=== PATIENT | female | born 1970 | race Caucasian/White ===

== ENCOUNTER 2016-08-25 00:30 | Observation (INO) | payer MEDICAID ==
[2016-08-25 03:54] LABS: ALB/GLOB RATIO 1.3 (1.1-1.8); ALKALINE PHOSPHATASE 200 U/L (38-133); ALT/SGPT 47 U/L (7-56); AST/SGOT 51 U/L (15-39); BILIRUBIN,TOTAL 0.7 mg/dL (0.2-1.3); BLOOD UREA NITROGEN 12 mg/dL (7-21); CALCIUM 9.7 mg/dL (8.4-10.5); CARBON DIOXIDE 20 mmol/L (21-33); CHLORIDE 93 mmol/L (98-107); GFR AFRICAN-AMERICAN > 60; POTASSIUM 4.1 mmol/L (3.6-5.0); SODIUM 130 mmol/L (132-148); TOTAL PROTEIN 8.3 g/dL (5.8-8.3)
[2016-08-25 03:55] LABS: HEMATOCRIT 39.5 % (36.0-48.0); MEAN CELL VOLUME 74.8 fL (80.0-105.0); MEAN CORPUSCULAR HEMOGLOBIN 26.1 pg (25.0-35.0); MEAN CORPUSCULAR HGB CONC 34.9 g/dl (31.0-37.0); MEAN PLATELET VOLUME 13.2 fl (7.0-11.0); RED CELL DISTRIBUTION WIDTH 13.9 % (11.5-14.5); TROPONIN I < 0.01 ng/mL; WHITE BLOOD COUNT 8.1 10^3/ul (4.5-11.0)
[2016-08-25 03:56] LABS: GLUCOSE,RANDOM 418 mg/dL (70-110)
--- NOTE | 2016-08-25 04:33 | ED PDOC ---
Arrival/HPI - General Historian: Patient - History of Present Illness Time/Duration: 4-6 hours Symptom Onset: Gradual Symptom Course: Unchanged Quality: Aching, Pressure Severity Level: 9 Activities at Onset: Rest Context: Home <Ava Limon - Last Filed: 08/25/16 04:17> <Jeremiah Mendoza - Last Filed: 08/25/16 04:22> - General Chief Complaint: Chest Pain Time Seen by Provider: 08/25/16 03:07 - History of Present Illness Narrative History of Present Illness (Text): 08/25/16 03:13 This is a 46Y F with PMH HTN, DM who came to the ED for chest pain for the past few hours. This pain is located on the L side of her chest. It does not radiate. She does admit to palpitations, dizziness and SOB. She reports the pain is 9/10. She checked her glucose at home and was in the 400s so she took a Metformin before she came to the ED. She denies abdominal pain, n/v/d, numbness/ tingling. (Ava Limon) Past Medical History - Provider Review Nursing Documentation Reviewed: Yes - Infectious Disease Hx of Infectious Diseases: None - Tetanus Immunization Tetanus Immunization: Unknown - Cardiac Hx Cardiac Disorders: No Hx Hypertension: Yes - Pulmonary Hx Tuberculosis: No - Neurological HX Cerebrovascular Accident: No Hx Seizures: No - HEENT Hx HEENT Disorder: No - Renal Hx Renal Disorder: No - Endocrine/Metabolic Hx Diabetes Mellitus Type 2: Yes - Hematological/Oncological Hx Cancer: No - Integumentary Hx Dermatological Disorder: No - Musculoskeletal/Rheumatological Hx Musculoskeletal Disorders: No Hx Falls: No - Gastrointestinal Hx Gastritis: Yes - Genitourinary/Gynecological Hx Sexually Transmitted Diseases: No - Psychiatric Hx Anxiety: Yes Hx Bipolar Disorder: Yes Hx Depression: Yes Hx Substance Use: No - Surgical History Hx Cholecystectomy: Yes (2006) Hx Thyroidectomy: Yes - Anesthesia Hx Anesthesia: No Hx Anesthesia Reactions: No Hx Malignant Hyperthermia: No - Suicidal Assessment Feels Threatened In Home Enviroment: No <Ava Limon - Last Filed: 08/25/16 04:17> Family/Social History - Physician Review Nursing Documentation Reviewed: Yes Family/Social History: No Known Family HX Smoking Status: Light Smoker < 10 Cigarettes Daily Hx Alcohol Use: No Hx Substance Use: No Hx Substance Use Treatment: No <Ava Limon - Last Filed: 08/25/16 04:17> Allergies/Home Meds <Ava Limon - Last Filed: 08/25/16 04:17> <Jeremiah Mendoza - Last Filed: 08/25/16 04:22> Allergies/Adverse Reactions: Allergies No Known Allergies Allergy (Verified 05/04/15 04:49) Home Medications: Home Meds Medication Instructions Recorded Confirmed QUEtiapine [SEROquel] 300 mg PO HS 05/04/15 08/25/16 MetFORMIN [glucoPHAGE] 1,000 mg PO DAILY 07/02/15 08/25/16 Review of Systems - Physician Review All systems were reviewed & negative as marked: Yes - Review of Systems Constitutional: Normal. absent: Fevers Eyes: Normal. absent: Vision Changes Respiratory: SOB. absent: Cough, Sputum, Wheezing Cardiovascular: Chest Pain. absent: Palpitations Gastrointestinal: Normal. absent: Abdominal Pain, Diarrhea, Nausea, Vomiting Musculoskeletal: Normal Skin: Normal Neurological: Dizziness. absent: Headache Psychiatric: Normal <Ava Limon - Last Filed: 08/25/16 04:17> Physical Exam Temperature: Afebrile Blood Pressure: Normal Pulse: Regular Respiratory Rate: Normal Appearance: Positive for: Well-Appearing, Non-Toxic, Comfortable Pain Distress: None Mental Status: Positive for: Alert and Oriented X 3 - Systems Exam Head: Present: Atraumatic, Normocephalic Pupils: Present: PERRL Extroacular Muscles: Present: EOMI Conjunctiva: Present: Normal Mouth: Present: Moist Mucous Membranes Neck: Present: Normal Range of Motion Respiratory/Chest: Present: Clear to Auscultation, Good Air Exchange. No: Respiratory Distress, Accessory Muscle Use Cardiovascular: Present: Regular Rate and Rhythm, Normal S1, S2, Tachycardic. No: Murmurs Abdomen: Present: Normal Bowel Sounds. No: Tenderness, Distention, Peritoneal Signs Back: Present: Normal Inspection Upper Extremity: Present: Normal Inspection. No: Cyanosis, Edema Lower Extremity: Present: Normal Inspection. No: Edema Neurological: Present: GCS=15, CN II-XII Intact, Speech Normal Skin: Present: Warm, Dry, Normal Color. No: Rashes Psychiatric: Present: Alert, Oriented x 3, Normal Insight, Normal Concentration <Ava Limon - Last Filed: 08/25/16 04:17> Medical Decision Making Re-evaluation Time: 03:16 Reassessment Condition: Improved - Lab Interpretations I have reviewed the lab results: Yes Interpretation: Abnormal lab values (hyperglycemia) - EKG Interpretation Interpreted by ED Physician: Yes Type: 12 lead EKG Comparison: Similar to previous EKG <Ava Limon - Last Filed: 08/25/16 04:17> - Lab Interpretations I have reviewed the lab results: Yes - EKG Interpretation Interpreted by ED Physician: Yes Type: 12 lead EKG <Jeremiah Mendoza - Last Filed: 08/25/16 04:22> ED Course and Treatment: 08/25/16 03:15 Impression: This is a 46Y F with PMH HTN and DM here for L sided chest pain for the past few hours. It does not radiate and does admit to SOB, dizziness and palpitations. Differential Diagnosis included but are not limited to: FL vs. costochondritis vs. anxiety Plan: -- EKG -- CBC, CMP, Troponin -- Reassess and disposition Prior Visits: Notes and results from previous visits were reviewed. Progress Note: EKG showed sinus tachycardia. Patient reports feeling well. (Ava Limon) Impression: Pt seen and evaluated with auditor medical claims. Pt, whose past medical history includes hypertension and diabetes, presented for left-sided chest pain for the past few hours. Pt reports associated palpitations, shortness of breath, and dizziness. Aware and agree with HPI, clinical findings, plan, and management. Plan: -- EKG -- Labs, cardiac enzymes -- Reassess and disposition Progress Notes: 08/25/16 01:[address] Lloyd, who is aware and agrees with plan. Accepts pt in to hospitalist service. Pt will go to Telemetry observation for chest pain. ( Jeremiah Mendoza) - Lab Interpretations Lab Results: 08/25/16 02:00 08/25/16 02:00 Lab Results 08/25/16 02:00: Sodium 130 L, Potassium 4.1, Chloride 93 L, Carbon Dioxide 20 L , Anion Gap 21 H, BUN 12, Creatinine 0.5, Est GFR ( Amer) > 60, Est GFR ( Non-Af Amer) > 60, Random Glucose 418 H* D, Calcium 9.7, Total Bilirubin 0.7, AST 51 H, ALT 47, Alkaline Phosphatase 200 H, Troponin I < 0.01, Total Protein 8.3, Albumin 4.8, Globulin 3.6, Albumin/Globulin Ratio 1.3 08/25/16 02:00: WBC 8.1, RBC 5.28, Hgb 13.8, Hct 39.5, MCV 74.8 L, MCH 26.1, MCHC 34.9, RDW 13.9, Plt Count 257, MPV 13.2 H - EKG Interpretation EKG Interpretation (Text): 08/25/16 03:17 Sinus tachycardia (Ava Limon) - PA / FAMILY NURSE PRACTITIONER / Resident Statement / has reviewed & agrees with the documentation as recorded. / has examined the patient and agrees with the treatment plan. <Jeremiah Mendoza - Last Filed: 08/25/16 04:22> Disposition/Present on Arrival - Present on Arrival Any Indicators Present on Arrival: No History of DVT/PE: No History of Uncontrolled Diabetes: No Urinary Catheter: No History Surgical Site Infection Following: None - Disposition Have Diagnosis and Disposition been Completed?: Yes Disposition Time: 03:26 Patient Plan: Admission <Ava Limon - Last Filed: 08/25/16 04:17> <Jeremiah Mendoza - Last Filed: 08/25/16 04:22> - Disposition Diagnosis: Chest pain Disposition: HOSPITALIZED Patient Problems: Current Active Problems Problem Status Onset Chest pain Acute Condition: FAIR
[2016-08-25] MEDS ORDERED: Insulin Lispro 1 UNITS/0.01 ML SC STA (04:41)
[2016-08-25] MEDS: Insulin Reg-LOW-Coverage SC SCH ×4 (07:58→22:12)
[2016-08-25 09:23] LABS: CHOLESTEROL 177 mg/dL (130-200)
[2016-08-25 09:36] LABS: TROPONIN I < 0.01 ng/mL
--- NOTE | 2016-08-25 10:42 | CON ---
DATE: 08/25/2016 REASON FOR CONSULTATION: Cardiac evaluation, palpitation, some chest discomfort. BRIEF CLINICAL HISTORY: This is a 46-year-old morbidly obese female, body mass of 43 kg/m2, diabetes , hypertension, hyperlipidemia, admitted with complaint of sharp pain in the chest, some chest discom fort and palpitation. The chest pain is very tender, localized and is tender to touch. PAST MEDICAL HISTORY: Significant for diabetes, hypertension, hyperlipidemia, obesity. PREVIOUS CARDIAC WORKUP: As follows: The patient had a stress test done on 06/07/2016, a Lexiscan, that showed essentially normal myocardial perfusion study, fixed defect, ejection fraction 74%, dated 06/07/2016. SOCIAL HISTORY: Denies any smoking. Denies any history of alcohol abuse. CURRENT MEDICATIONS: The patient at home was taking Januvia, Seroquel, Protonix, Lopressor, metformi n, lisinopril, atorvastatin, and aspirin. REVIEW OF SYSTEMS: A 14-point review of systems was reviewed and found to be negative except as per HPI. PHYSICAL EXAMINATION: VITAL SIGNS: Temperature afebrile, heart rate 87, blood pressure 138/75. HEENT: PERRLA. Extraocular muscles intact. NECK: Supple. No carotid bruits. No thyromegaly. CHEST: Clear to auscultation. HEART: S1, S2 regular. ABDOMEN: Soft. EXTREMITIES: Clubbing and cyanosis negative. BLOOD WORKUP: As follows: WBC 8.1, hemoglobin 13.8, hematocrit 39.5, platelet count 257. Chemistry shows sodium 130, potassium 4.____, chloride 93, carbon dioxide 20, anion gap of 21, BUN 12, creatin ine 0.5. Troponin 0.01. IMPRESSION: Atypical chest pain, so far troponin is negative; sinus tachycardia, diabetes, hypertens ion, hyperlipidemia, tenderness on the chest. RECOMMENDATION: Resume Lopressor 50 mg twice and resume all previous medication. Follow up CPK, tro ponin. Will do 1 more set of CPK/troponin and get echo to assess LV function. Lipid profile, TSH. Further recommendations depending on the hospital course. Will follow with you. Thank you, Dr. Lloyd, for providing us opportunity in taking care of the patient. Will also add lip id profile and TSH. Isabella Gudino MD cc: [facility] TT: 08/25/2016 10:41:41 Confirmation # [id number] Dictation # [id number]
[2016-08-25 14:11] VITALS: BMI 42.7
[2016-08-25] MEDS ORDERED: Pneumococcal 23-Valent Vaccine IM ONE (14:11)
[2016-08-25] MEDS: Pantoprazole 40 mg EC Tab PO SCH (14:22)
--- NOTE | 2016-08-25 16:28 | CARD ---
APPROVED REPORT EKG Measurement Heart [id number] FHy119 <Conclusion> Sinus tachycardia Otherwise normal ECG
[2016-08-25 17:19] LABS: TROPONIN I < 0.01 ng/mL
[2016-08-25] MEDS: Insulin Detemir 100 units/ml Vial (Levemir) SC SCH (17:46)
--- NOTE | 2016-08-25 19:48 | CARD ---
APPROVED REPORT EXAM: Two-dimensional and M-mode echocardiogram with Doppler and color Doppler. INDICATION Chest Pain LVFX 2D DIMENSIONS Left Atrium (2D)3.5 (1.6-4.0cm)IVSd1.1 (0.7-1.1cm) LVDd4.1 (3.9-5.9cm)PWd1.2 (0.7-1.1cm) LVDs2.9 (2.5-4.0cm)FS (%) 29.8 % LVEF (%)57.5 (>50%) M-Mode DIMENSIONS Aortic Root3.00 (2.2-3.7cm)Aortic Cusp Exc.1.50 (1.5-2.0cm) Aortic Valve AoV Peak Vxxwbjms740.0cm/Jeana Peak GR.10mmHgLVOT Peak Ixtyxxea004.0cm/s LVOT VTI22.00cm Mitral Valve MV E Kwrdrocd90.7cm/sMV A Kdukqlav53.8cm/sE/A ratio0.7 TDI Lateral E' Peak V9.75cm/sMedial E' Peak V6.92cm/sE/Lateral E'6.1 E/Medial E'8.6 Pulmonary Valve PV Peak Kgflzaxd48.4cm/sPV Peak Grad.3mmHg Tricuspid Valve TR Peak Qtimycem449yi/sRAP EDKHTLTJ66kvNtNG Peak Gr.36mmHg ZFZJ31drHj LEFT VENTRICLE The left ventricle is normal size. There is borderline concentric left ventricular hypertrophy. The left ventricular function is normal.EF-55-60% There is normal LV segmental wall motion. Transmitral Doppler flow pattern is Grade III-reversible restrictive diastolic dysfunction. No left ventricle thrombus noted on this study. There is no ventricular septal defect visualized. There is no left ventricular aneurysm. There is no mass noted in the left ventricle. RIGHT VENTRICLE The right ventricle is normal size. There is normal right ventricular wall thickness. The right ventricular systolic function is normal. AORTIC VALVE The aortic valve is thickened but opens well. There is trace aortic regurgitation. There is no aortic valvular stenosis. There is no aortic valvular vegetation. MITRAL VALVE The mitral valve is thickened but opens well. Mitral regurgitation is trace. There is no mitral valve stenosis. There is no evidence of mitral valve prolapse. TRICUSPID VALVE The tricuspid valve leaflets are thickened , but open well. There is mild tricuspid regurgitation.RVSP-49 mmof hg. There is no tricuspid valve stenosis. There is no tricuspid valve prolapse or vegetation. PULMONIC VALVE The pulmonic valve is not well visualized. GREAT VESSELS The aortic root is normal in size. The ascending aorta is normal in size. The pulmonary artery is normal. The IVC is normal in size and collapses >50% with inspiration. PERICARDIAL EFFUSION There is no pleural effusion. There is no pericardial effusion. <Conclusion> Normal chamber Size. EF-55-60% trace MR/AR Mild TR, RVSP-49 mmof Hg. There is no pericardial effusion. The IVC is normal in size and collapses >50% with inspiration.
[2016-08-25] MEDS ORDERED: TERCONAZOLE 0.8% VG SCH (23:45)
[2016-08-26] MEDS ORDERED: Sodium Chloride 0.9% 500 ML IV SCH (13:25)
[2016-08-26] MEDS ORDERED: POLYETHYLENE GLYCOL 3350 17 GM/Dose PACKET PO ONE (14:45)
--- NOTE | 2016-08-26 15:06 | PN ---
DATE: 08/26/2016 Dictating from the top of the head. Computer system is down. REASON FOR CONSULTATION: Chest pain, cardiac evaluation. BRIEF CLINICAL HISTORY: A 46-year-old female with past medical history significant for hypertension, hyperlipidemia, negative stress test a year ago, admitted with atypical chest pain. Echo was essent ially normal. So far, no evidence of acute myocardial infarction. Chest pain is musculoskeletal. PHYSICAL EXAMINATION: VITAL SIGNS: Temperature afebrile, heart rate 80, blood pressure 130/80. HEENT: PERRLA. Extraocular muscles intact. NECK: Supple. No carotid bruits. No thyromegaly. CHEST: Clear to auscultation. HEART: S1, S2 regular. ABDOMEN: Soft. EXTREMITIES: Clubbing and cyanosis negative. LABORATORY DATA: Blood workup is pending. IMPRESSION: Atypical chest pain, mitral regurgitation, tricuspid regurgitation, obesity, diabetes, h ypertension, hyperlipidemia, atypical chest pain. RECOMMENDATION: Continue current medical treatment. Follow up the lab when the system is available. No further cardiac workup is planned at this time. The patient is okay to be discharged from cardi ology point of view. Thank you, Dr. Lloyd, for providing the opportunity in taking care of this patient. Isabella Gudino MD cc:Jacob Lloyd MD [phone] TT: 08/26/2016 14:00:16 Confirmation # [id number] Dictation # [id number]
[2016-08-26] MEDS: Insulin Reg-MEDIUM-Coverage SC SCH (23:15)
[2016-08-27 07:45] LABS: VENOUS BLOOD PH 7.31 (7.32-7.43)
--- NOTE | 2016-08-27 08:16 | PN ---
DATE: 08/26/2016 HISTORY OF PRESENT ILLNESS: A 46-year-old female came in. Complained today, on 08/26, of vaginal it molly, and also her blood sugar seems running high. PHYSICAL EXAMINATION: VITAL SIGNS: Otherwise, her physical examination, her temperature 97, heart rate 101, blood pressure 148/82, respirations 20. HEAD AND NECK: Normal. No JVD, no thyromegaly. CHEST: Clear, good air entry. CARDIAC: First and second sounds are normal. ABDOMEN: Soft, obese, nontender. EXTREMITIES: No edema. NEUROLOGIC: Is normal. LABORATORY DATA: The patient also had an echocardiogram which shows ejection fraction of 55% to 60%, trace MR, AR, mild TR, and right ventricular systolic pressure 49. There is no pericardial effusion s and IVC is normal in size and collapsed more than 50% with inspiration. IMPRESSION AND PLAN: 1. Chest pain: Cardiology consult, Dr. Gudino, has seen the patient. Will follow up his recommendati ons. The patient did have a recent stress test which was normal and her echo seems good left ventric ular functions, and mild pulmonary hypertension, 49. 2. The patient does have morbid obesity. She has some dyspnea, which could be multifactorial. She is walking. She is active. Less likely to be any pulmonary embolism. Will get a pulmonary consult for further evaluations. 3. Vaginal itching: Probably monilial infections. Will give her Terazol vaginal cream plus Difluca n. 4. Uncontrolled diabetes: Will start Levemir 10 units b.i.d. and increase the insulin coverage to m oderate coverage, and will adjust insulin based on the insulin requirements and dietary modifications . Continue Januvia. Continue metformin, also. 5. Hypertension: Continue Lopressor. 6. Hypercholesterolemia: Currently on Lipitor. The patient also has depression with bipolar disord er. Continue Seroquel for now. 7. For her hypertension, we mentioned Lopressor. Also, patient takes Zestril 10 mg daily. 8. Follow up clinically. Jacob Lloyd MD cc: [phone] TT: 08/27/2016 00:19:40 Confirmation # [id number] Dictation # [id number]
--- NOTE | 2016-08-27 08:17 | HP ---
MAIN COMPLAINT: She felt chest pain, more left side. She also associated with short of breath. HISTORY OF PRESENT ILLNESS: This is an 46-year-old female, who came into the Emergency Room because of a chest pain, more on the left side, and the patient has had sharp chest pain that was severe enou gh that made her come to the hospital Emergency Room. She had similar chest pain in the past, and bi did have a cardiac workup in the past and it was negative. The patient also has associated palpita tions. She has also short of breath recently that got worse. She has been short of breath for the l ast couple to 3 weeks or more, maybe months, and she does not do any physical activity, as in the pas t because she has no time, but her dyspnea seems like a part due to lack of activity and seems part o f the complaint. She has no wheezing. She has no cough. She has no fever. She has no chills. She has no nausea, vomiting, or diarrhea. PAST MEDICAL HISTORY: Diabetes type 2, hypertension. The patient also has a history of bipolar diso rder, depression, hypercholesterolemia. ALLERGIES: She has no known allergies. SOCIAL HISTORY: She lives with her . FAMILY HISTORY: Noncontributory. She does have a sister, which she is a doctor in [place], a psychia trist, I believe. HOME MEDICATIONS: She takes Vasotec 10 mg p.o. daily, metformin 1000 b.i.d., Seroquel 300 mg p.o. at bedtime, Protonix 40 mg once a day, Lopressor 25 mg b.i.d., Zestril 10 mg p.o. daily, Lipitor 20 onc e a day, and aspirin 325 mg once a day. REVIEW OF SYSTEMS: As in the present illness, she does get dyspnea. She does get anxiety. She does get depressed, otherwise negative. PHYSICAL EXAMINATION: VITAL SIGNS: Temperature 98, heart rate 94, blood pressure is 111/80, respirations 16. HEAD AND NECK: Normal. No JVD. No thyromegaly. CHEST: Clear, good entry. CARDIAC: 1st sound, 2nd second normal. ABDOMEN: Obese, nontender. EXTREMITIES: No edema. NEUROLOGIC: Normal. LABORATORY DATA: White count 8.1, hemoglobin .8, hematocrit 39.5, platelets 257. Chemistry no heath for blood sugar is elevated on admission. Her sodium 130, potassium 4.1, chloride 93, bicarb 20, BUN 12, creatinine 0.5, blood sugar is 418, calcium 9.7, total bilirubin 0.7, AST 51, ALT normal. A lkaline phosphatase is 200. Troponin was 0.01. Total protein, albumin, and globulin were normal. T he patient also had cholesterol check. Her LDL was 121. Triglyceride 199 and cholesterol, total, 17 7. Her HDL 33. TSH was 3.30. Her hemoglobin A1c was 10.8. The patient also had an EKG when she ca me in, which was read as sinus tachycardia, otherwise normal. IMPRESSION AND PLAN: 1. This is a 46-year-old female with history of depression and anxiety. Had complained of left-side d chest pain. She also noted dyspnea. We will admit the patient; keep her for telemetry; get cardia c enzyme; cardiology consult, Dr. Gudino. 2. Uncontrolled diabetes. We will resume insulin coverage. We will resume her metformin. We will do diet and diabetic education, and we will follow up on the patient. The patient is supposed to be on Victoza. We will discuss. She does not come frequently to the office, and got out of contr ol as outpatient. 3. Morbid obesity. The patient advised about weight loss and exercise. It seems her side component and being dizzy, not helping her to go for exercise as before. We will follow up clinically. Jacob Lloyd MD cc: [phone] TT: 08/27/2016 00:56:37 tn
[2016-08-27] MEDS: Pantoprazole 40 mg EC Tab PO SCH ×2 (08:35→12:02)
[2016-08-27] MEDS: Insulin Reg-MEDIUM-Coverage SC SCH ×4 (08:36→22:05)
[2016-08-27] MEDS: Sodium Chloride 0.9% 1,000 ML IV SCH ×2 (08:41→17:11)
[2016-08-27 09:56] LABS: ALB/GLOB RATIO 1.2 (1.1-1.8); ALKALINE PHOSPHATASE 174 U/L (38-133); ALT/SGPT 43 U/L (7-56); AST/SGOT 43 U/L (15-39); BILIRUBIN,TOTAL 0.7 mg/dL (0.2-1.3); BLOOD UREA NITROGEN 11 mg/dL (7-21); CALCIUM 9.2 mg/dL (8.4-10.5); CARBON DIOXIDE 19 mmol/L (21-33); CHLORIDE 99 mmol/L (98-107); CHOLESTEROL 153 mg/dL (130-200); GFR AFRICAN-AMERICAN > 60; POTASSIUM 3.7 mmol/L (3.6-5.0); SODIUM 133 mmol/L (132-148); TOTAL PROTEIN 7.1 g/dL (5.8-8.3)
[2016-08-27 10:02] LABS: GLUCOSE,RANDOM 424 mg/dL (70-110)
[2016-08-27] MEDS: Levalbuterol 0.63 MG/3 ML Inhal Soln UD IH SCH ×4 (11:20→20:15)
[2016-08-27] MEDS: POLYETHYLENE GLYCOL 3350 17 GM/Dose PACKET PO SCH (12:02)
[2016-08-27] MEDS: Insulin Detemir 100 units/ml Vial (Levemir) SC SCH ×2 (12:04→21:39)
[2016-08-27 12:06] LABS: HEMATOCRIT 35.4 % (36.0-48.0); MEAN CELL VOLUME 76.5 fL (80.0-105.0); MEAN CORPUSCULAR HEMOGLOBIN 25.9 pg (25.0-35.0); MEAN CORPUSCULAR HGB CONC 33.9 g/dl (31.0-37.0); MEAN PLATELET VOLUME 12.5 fl (7.0-11.0); RED CELL DISTRIBUTION WIDTH 14.4 % (11.5-14.5); WHITE BLOOD COUNT 6.7 10^3/ul (4.5-11.0)
[2016-08-27] MEDS ORDERED: Insulin Detemir 100 units/ml Vial (Levemir) SC STA ×2 (14:05→14:12)
[2016-08-27 15:07] LABS: BLOOD UREA NITROGEN 11 mg/dL (7-21); GFR AFRICAN-AMERICAN > 60; GLUCOSE,RANDOM 356 mg/dL (70-110); POTASSIUM 4.1 mmol/L (3.6-5.0); SODIUM 132 mmol/L (132-148)
[2016-08-27 15:08] LABS: ALB/GLOB RATIO 1.2 (1.1-1.8); ALKALINE PHOSPHATASE 156 U/L (38-133); ALT/SGPT 46 U/L (7-56); AST/SGOT 35 U/L (15-39); BILIRUBIN,TOTAL 0.7 mg/dL (0.2-1.3); CALCIUM 8.6 mg/dL (8.4-10.5); CARBON DIOXIDE 17 mmol/L (21-33); CHLORIDE 101 mmol/L (98-107); TOTAL PROTEIN 6.9 g/dL (5.8-8.3)
[2016-08-27 16:01] LABS: HEMATOCRIT 35.4 % (36.0-48.0); MEAN CELL VOLUME 76.5 fL (80.0-105.0); MEAN CORPUSCULAR HEMOGLOBIN 25.9 pg (25.0-35.0); MEAN CORPUSCULAR HGB CONC 33.9 g/dl (31.0-37.0); MEAN PLATELET VOLUME 12.5 fl (7.0-11.0); RED CELL DISTRIBUTION WIDTH 14.4 % (11.5-14.5); WHITE BLOOD COUNT 6.7 10^3/ul (4.5-11.0)
[2016-08-27] MEDS: Nystatin 100,000 Units/gm Topical Pow(15 gm) TOP SCH (17:11)
--- NOTE | 2016-08-27 21:15 | PN ---
DATE: 08/27/2016 REASON FOR CONSULTATION AND FOLLOWUP: Chest pain, atypical, nonischemic, tenderness. BRIEF CLINICAL HISTORY: The patient is a 46-year-old morbidly obese female with a body mass index 43 kg/m2, diabetes, hypertension and hyperlipidemia, admitted with complaint of sharp chest pain to the chest and feels palpitations. Telemetry on admission, the patient has no significant arrhythmia not ed. PHYSICAL EXAMINATION: VITAL SIGNS: Temperature afebrile, heart rate 101, sinus tachycardia; blood pressure 119/60. HEENT: PERRLA. Extraocular muscles intact. NECK: Supple. No carotid bruits. No thyromegaly. CHEST: Clear to auscultation. HEART: S1, S2 regular. ABDOMEN: Soft. EXTREMITIES: Clubbing and cyanosis negative. LABORATORY DATA: Blood workup as follows: WBC , hemoglobin , hematocrit 35.4, platelet co unt 224. Chemistry shows sodium 130, potassium 3.7, chloride , carbon dioxide 19, anion gap of , BUN 11, creatinine 0.11, TSH 3.3. The patient had a repeat echocardiography done that showed normal size, LV ejection fraction of 55% to 60%, trace MR, trace AR, mild TR, RV systolic pressure of 49. IMPRESSION: Atypical chest pain, no evidence of acute myocardial infarction, obesity, TSH is within normal limits, sinus tachycardia, diabetes, hypertension, hyperlipidemia, tenderness in the chest wal l. RECOMMENDATION: Increase Lopressor to 50 b.i.d. as blood pressure tolerates. Continue treatment for modification of lifestyle and risk factors for CAD. No further cardiac workup is planned at this ti de. Thank you, Dr. Lloyd, for providing the opportunity in taking care of this patient. Isabella Gudino MD cc: [phone] TT: 08/27/2016 21:14:53 Confirmation # [id number] Dictation # [id number]
[2016-08-28] MEDS: Insulin Reg-MEDIUM-Coverage SC SCH ×2 (07:30→11:30)
[2016-08-28 08:02] VITALS: BP 131/92; PULSE 92; RESP 19; TEMP 98.1; O2SAT 97
[2016-08-28] MEDS: Levalbuterol 0.63 MG/3 ML Inhal Soln UD IH SCH ×3 (08:43→11:51)
[2016-08-28] MEDS: Insulin Detemir 100 units/ml Vial (Levemir) SC SCH (10:00)
[2016-08-28] MEDS: POLYETHYLENE GLYCOL 3350 17 GM/Dose PACKET PO SCH (10:37)
[2016-08-28] MEDS: Pantoprazole 40 mg EC Tab PO SCH (10:37)
[2016-08-28] MEDS: Nystatin 100,000 Units/gm Topical Pow(15 gm) TOP SCH (10:37)
--- NOTE | 2016-08-29 15:05 | DS ---
A 46-year-old female came in with uncontrolled diabetes. The patient initially was given IV fluids, was given insulin high scale coverage, blood sugar went down. Her Lantus was increased gradually to 20 units b.i.d. as her body required more insulin. She also had vaginal itching for which was given Mycostatin for skin area outside and Terazol vaginal inserts plus Diflucan p.o. for the time she was being here in the hospital. The patient also had mild dyspnea, which she has had for the last few mo nths. She also noted that her weight has been increased for the last couple of years, more than befo re. She stopped exercising and diabetes seems getting out of control due to multifactorial and nonco mpliance with office visits, diet, exercise and weight loss. The patient's, blood sugar was controll ed, went down to less than 200 and advised to follow diet, low carbohydrate diet. Plus patient will be added in the office, Victoza when she comes with the blood sugar reading. Concern is to start Sunil toza without seeing her and not knowing if she checked her sugar or not and same insulin dosage will make her into hypoglycemia, so I did explain that to the patient that she needs follow up in the offi ce. Currently, she has no chest pain, not short of breath. She seems stable, saturating almost 100% on room air and 98% on room air and heart rate in the 90s, otherwise stable. PHYSICAL EXAMINATION ON DISCHARGE ON 08/28: VITAL SIGNS: Temperature 98.1, heart rate 92, blood pressure 131/92, respirations 19, saturation 97% on room air. HEAD AND NECK: Normal. No JVD, no thyromegaly. CHEST: Clear, good entry. CARDIAC: First and second sounds are normal. ABDOMEN: Soft, obese, nontender. EXTREMITIES: No edema. NEUROLOGIC: Normal. LABORATORY DATA: Blood sugar is 231, the last one on the computer; however, her blood sugar started coming down to 200s. DISCHARGE DIAGNOSES: 1. Uncontrolled diabetes. 2. Morbid obesity. 3. Mild pulmonary hypertension due to probably morbid obesity and possibly obstructive sleep apnea. The patient advised to follow up in the office for sleep study. The patient was supposed to be seen by pulmonary consult; however, the consult is not in the computer and she was rushing to go home and was discharged. 4. Vaginal moniliasis or vaginal fungal infections, are better. 5. Hypercholesterolemia. 6. Hypertension. 7. Atypical chest pain. 8. Morbid obesity with possible obstructive sleep apnea. 9. Bipolar disorder, depression with anxiety. PLAN: Discharge patient home. Prescription has been sent to her pharmacy, and will follow up in the office Tuesday or Tuesday. Jacob Lloyd MD cc: [phone] TT: 08/29/2016 15:05:07 jn
--- NOTE | 2016-08-30 08:58 | PN ---
DATE: 08/27/2016 The patient is comfortable. No respiratory distress. No chest pain, no short of breath. She is jus t concerned about her diabetes. Blood sugar runs 300 and she is very anxious. The patient also does have a history of anxiety and bipolar disorder. Currently, she is comfortable. She walks around, n o distress, no chest pain. Seen by director of assisted living. She has skin vaginal itching around the vagina fro m outside. Otherwise, she is stable. Her blood sugar was on the 200-300 range. However, for techni chava computer problems, blood sugar was not done and also a consult by pulmonary was not done, was not put in, communication error. PHYSICAL EXAMINATION: VITAL SIGNS: Temperature 98.2, heart rate 64, blood pressure 119/68, respiratory rate 20. HEAD AND NECK: Normal. No JVD, no thyromegaly. CHEST: Clear, good air entry. CARDIAC: First sound, second sound normal. ABDOMEN: Soft, obese, nontender. EXTREMITIES: No edema. NEUROLOGIC: The patient is alert, awake, oriented x 3 and neurologically is normal. LABORATORY DATA: The patient had an echocardiogram which shows normal compression IVC with respirati ons, collapse more than 50%, mild TR, right ventricular systolic pressure 49, ejection fraction 55%-6 0% and left ventricle shows grade III reversible restrictive diastolic dysfunction. IMPRESSION AND PLAN: Uncontrolled diabetes. We will continue increasing her Lantus. I did explain to the patient that hypoglycemia and risk of that and we have to control the sugar and monitor sugar more frequent at home. The patient will increase Lantus from 15 twice a day, will go increase it to 20 b.i.d. We will increase otherwise stable. We will increase insulin gradually, go up on the Lantus and sliding scale high scale. We will increase also Amaryl to 4 mg daily and we also conside ring Victoza as outpatient. The patient clinically stable. She is anxious, but otherwise is no dist ress. She also has chest wall tenderness. IMPRESSION AND PLAN: 1. Uncontrolled diabetes. 2. Hypertension. 3. Hypercholesterolemia. 4. Anxiety, bipolar disorder, depression. 5. Morbid obesity possibly. The patient is morbidly obese with high body mass index 44. That could be multifactorial for her pulmonary hypertension and hypoxemia and dyspnea associated disease. The patient advised to start losing weight and monitor and considering Victoza for that reason. The lenny ent also has chest wall tenderness on the left side. She did have similar symptoms in the past and c ardiac workup was negative. The patient will be followed up in the morning. Jacob Lloyd MD cc: [phone] TT: 08/29/2016 08:21:56 Confirmation # [id number] Dictation # [id number]
== END 2016-08-28 15:20 | disposition home or self-care (01) ==
LOC: ED 00:30 → ERH 03:17 → 2RNO 05:27 → 3RSO 08-27 14:35
PROVIDERS: ADMIT Internal Medicine; ATTEND Internal Medicine
DX: E11.65 Type 2 diabetes mellitus with hyperglycemia (principal); R07.89 Other chest pain; I10 Essential (primary) hypertension; B37.3 Candidiasis of vulva and vagina; E66.01 Morbid (severe) obesity due to excess calories; I27.2 Other secondary pulmonary hypertension; E78.00 Pure hypercholesterolemia, unspecified; F31.9 Bipolar disorder, unspecified; F41.9 Anxiety disorder, unspecified; I08.1 Rheumatic disorders of both mitral and tricuspid valves; E78.5 Hyperlipidemia, unspecified; Z79.84 Long term (current) use of oral hypoglycemic drugs; Z68.41 Body mass index [BMI] 40.0-44.9, adult; Z91.11 Patient's noncompliance with dietary regimen; Z91.19 Patient's noncompliance with other medical treatment and regimen
CPT/HCPCS: 36415; 80053; 80061; 82550; 82803; 82948; 83036; 83615; 84443; 84484; 85027; 93005; 93306; 94640; 96360; 96361; 99285; G0378; J7040

== ENCOUNTER 2016-12-14 18:07 | Emergency (ER) | payer MEDICAID ==
[2016-12-14 18:37] VITALS: BMI 41.1
[2016-12-14 18:41] VITALS: BP 119/88; PULSE 78; RESP 19; TEMP 98.3; O2SAT 99
[2016-12-14] MEDS ORDERED: Tmp-Smz 800 mg-160 mg DS Tab PO STA (20:50)
--- NOTE | 2016-12-14 20:51 | ED PDOC ---
Arrival/HPI - General Historian: Patient, Spouse - History of Present Illness Time/Duration: Other (3 days) Quality: Aching Context: Home <Pepito Melendrez - Last Filed: 12/14/16 20:48> <Jeremiah Mendoza - Last Filed: 12/14/16 21:04> - General Chief Complaint: Abnormal Skin Integrity Time Seen by Provider: 12/14/16 20:42 - History of Present Illness Narrative History of Present Illness (Text): 12/14/16 20:30 This 46 yo female presents to this ED c/o left facial abscess x 3 days. Patient admits she had similar symptoms in the past. Denies erythema, fever. ( Pepito Melendrez) Past Medical History - Provider Review Nursing Documentation Reviewed: Yes - Infectious Disease Hx of Infectious Diseases: None - Tetanus Immunization Tetanus Immunization: Unknown - Cardiac Hx Cardiac Disorders: Yes Hx Hypertension: Yes - Pulmonary Hx Respiratory Disorders: No Hx Tuberculosis: No - Neurological Hx Neurological Disorder: No HX Cerebrovascular Accident: No Hx Seizures: No - HEENT Hx HEENT Disorder: No - Renal Hx Renal Disorder: No - Endocrine/Metabolic Hx Endocrine Disorders: Yes Hx Diabetes Mellitus Type 2: Yes - Hematological/Oncological Hx Blood Disorders: No Hx Cancer: No - Integumentary Hx Dermatological Disorder: No - Musculoskeletal/Rheumatological Hx Musculoskeletal Disorders: No Hx Falls: No - Gastrointestinal Hx Gastrointestinal Disorders: Yes Hx Colostomy: No Hx Crohn's Disease: No Hx Diverticulitis: No Hx Gall Bladder Disease: Yes Hx Gastroesophageal Reflux: Yes Hx Gastrointestinal Ulcer: No Hx Ileostomy: No Hx Liver Failure: No Hx Pancreatitis: No HX Swallowing Problems: No Other/Comment: GASTRITIS - Genitourinary/Gynecological Hx Genitourinary Disorders: Yes Hx Sexually Transmitted Diseases: No Hx Urinary Tract Infection: Yes - Psychiatric Hx Psychophysiologic Disorder: Yes Hx Anxiety: Yes Hx Bipolar Disorder: Yes Hx Depression: Yes Hx Substance Use: No - Surgical History Hx Cholecystectomy: Yes (2006) - Anesthesia Hx Anesthesia: Yes Hx Anesthesia Reactions: No Hx Malignant Hyperthermia: No - Suicidal Assessment Feels Threatened In Home Enviroment: No <Pepito Melendrez - Last Filed: 12/14/16 20:48> Family/Social History - Physician Review Nursing Documentation Reviewed: Yes Family/Social History: Other (non-contributory) Smoking Status: Never Smoked Hx Alcohol Use: No Hx Substance Use: No Hx Substance Use Treatment: No <Pepito Melendrez - Last Filed: 12/14/16 20:48> Allergies/Home Meds <Pepito Melendrez - Last Filed: 12/14/16 20:48> <KellyJeremiah - Last Filed: 12/14/16 21:04> Allergies/Adverse Reactions: Allergies No Known Allergies Allergy (Verified 12/14/16 18:37) Home Medications: Home Meds Medication Instructions Recorded Confirmed QUEtiapine [SEROquel] 300 mg PO HS 05/04/15 12/14/16 Enalapril Maleate [Vasotec] 10 mg PO DAILY 08/25/16 12/14/16 Review of Systems - Review of Systems Constitutional: Normal. absent: Fatigue, Weight Change, Fevers Eyes: Normal ENT: Normal Respiratory: Normal Cardiovascular: Normal Gastrointestinal: Normal Genitourinary Female: Normal Musculoskeletal: Normal Skin: Abscess (left facial abscess, anterior to left ear lobe) Neurological: Normal Endocrine: Normal Hemo/Lymphatic: Normal Psychiatric: Normal <Pepito Melendrez P - Last Filed: 12/14/16 20:48> Physical Exam Temperature: Afebrile Blood Pressure: Normal Pulse: Regular Respiratory Rate: Normal Appearance: Positive for: Well-Appearing, Non-Toxic, Comfortable Pain Distress: None Mental Status: Positive for: Alert and Oriented X 3 - Systems Exam Head: Present: Atraumatic, Normocephalic Pupils: Present: PERRL Extroacular Muscles: Present: EOMI Conjunctiva: Present: Normal Mouth: Present: Moist Mucous Membranes Neck: Present: Normal Range of Motion Upper Extremity: Present: Normal Inspection, Normal ROM Lower Extremity: Present: Normal Inspection Neurological: Present: GCS=15, CN II-XII Intact, Speech Normal, Motor Func Grossly Intact, Normal Sensory Function, Normal Cerebellar Funct, Gait Normal, Memory Normal Skin: Present: Warm, Dry, Normal Color, Abscess ((+) left facial abscess , just anterior to left ear. (+) fluctuance. Zeus rythema or swelling.). No: Rashes Psychiatric: Present: Alert, Oriented x 3, Normal Insight, Normal Concentration <Pepito Melendrez - Last Filed: 12/14/16 20:48> Medical Decision Making Re-evaluation Time: 20:52 Reassessment Condition: Re-examined, Improved <MelendrezPepito Brown - Last Filed: 12/14/16 20:48> <Jeremiah Mendoza - Last Filed: 12/14/16 21:04> ED Course and Treatment: 12/14/16 20:52 Patient refused I&D. She prefers taking ABX and do warmth compress instead. She will return to emergency if symptoms worsen. (Pepito Melendrez) - Medication Orders Current Medication Orders: Discontinued Medications Ibuprofen (Motrin Tab) 800 mg PO STAT STA Stop: 12/14/16 20:54 Trimethoprim/Sulfamethoxazole (Bactrim Ds Tab) 1 tab PO STAT STA PRN Reason: Protocol Stop: 12/14/16 20:51 - PA / CAGE CLERK / Resident Statement MELINDA has reviewed & agrees with the documentation as recorded. <KellyJeremiah - Last Filed: 12/14/16 21:04> Disposition/Present on Arrival - Present on Arrival Any Indicators Present on Arrival: No History of DVT/PE: No History of Uncontrolled Diabetes: No Urinary Catheter: No History of Decub. Ulcer: No History Surgical Site Infection Following: None - Disposition Have Diagnosis and Disposition been Completed?: Yes Disposition Time: 20:53 Patient Plan: Discharge <MelendrezPepito marcano - Last Filed: 12/14/16 20:48> <KellyJeremiah - Last Filed: 12/14/16 21:04> - Disposition Diagnosis: Abscess Disposition: HOME/ ROUTINE Condition: GOOD Discharge Instructions (ExitCare): Abscess (ED) Additional Instructions: Call private doctor for follow up visit in 1-2 days. Apply warmth compress every 2 hours for 10 minutes until abscess drainage occurs. Return to emergency if symptoms worsen. Prescriptions: Naproxen 500 mg PO BID PRN #14 tab PRN Reason: Pain, Severe (8-10) Sulfamethoxazole/Trimethoprim [Bactrim DS 800 mg-160 mg] 1 tab PO BID #20 tab Referrals: Jacob Lloyd MD [Primary Care Provider] - Follow up with primary Forms: [employer] (Faroese)
== END 2016-12-14 21:22 | disposition home or self-care (01) ==
LOC: ED 18:07
DX: L02.01 Cutaneous abscess of face (principal)

== ENCOUNTER 2017-12-06 20:10 | Emergency (ER) | payer MEDICAID ==
[2017-12-06 20:10] VITALS: BMI 41.1
[2017-12-06 20:30] VITALS: RESP 18
[2017-12-06 21:19] LABS: BASO # 0.02 K/mm3 (0.0-2.0); BASO % 0.3 % (0.0-3.0); EOS # 0.2 (0.0-0.7); EOS % 2.5 % (1.5-5.0); GRAN # 4.64 (1.4-6.5); GRAN % 64.3 % (50.0-68.0); HEMOGLOBIN 12.4 g/dL (12.0-16.0); LYMPH % 28.2 % (22.0-35.0); MEAN CELL VOLUME 81.4 fl (80.0-105.0); MEAN CORPUSCULAR HEMOGLOBIN 27.2 pg (25.0-35.0); MEAN CORPUSCULAR HGB CONC 33.4 g/dl (31.0-37.0); MEAN PLATELET VOLUME 11.3 fl (7.0-11.0); MONO # 0.3 (0.1-0.6); MONO % 4.7 % (1.0-6.0); RBC 4.56 10^6/uL (3.5-6.1); RED CELL DISTRIBUTION WIDTH 13.3 % (11.5-14.5); WHITE BLOOD COUNT 7.2 10^3/ul (4.5-11.0)
[2017-12-06 21:29] LABS: PARTIAL THROMBOPLASTIN TIME 30.4 Seconds (25.1-36.5); PROTHROMBIN TIME 11.4 SECONDS (9.4-12.5)
[2017-12-06 21:35] LABS: ALB/GLOB RATIO 1.3 (1.1-1.8); ALT/SGPT 55 U/L (7-56); AST/SGOT 42 U/L (14-36); BLOOD UREA NITROGEN 11 mg/dL (7-21); CALCIUM 8.9 mg/dL (8.4-10.5); GFR NON-AFRICAN AMERICAN > 60
[2017-12-06 21:43] LABS: TROPONIN I < 0.01 ng/mL
--- NOTE | 2017-12-06 22:19 | ED PDOC ---
Arrival/HPI - General Chief Complaint: Chest Pain Time Seen by Provider: 12/06/17 20:13 Historian: Patient - History of Present Illness Narrative History of Present Illness (Text): 12/06/17 20:40 47 year old [place] female, with past medical history of anxiety/depression, diabetes, and obesity, presents to the Emergency department complaining of intermittent chest pain and palpitations associated with lightheadedness prior to arrival. Patient informs similar symptoms in the past prompting her to present to the Emergency department for medical evaluation. Patient received a thorough cardiac work up including stress in 2016 with no significant findings. Patient denies any fevers, chills, headache, shortness of breath, dyspnea on exertion, cough, abdominal pain, nausea, vomiting, diarrhea, back pain, neck pain, or any other complaints. Patient denies any suicidal or homicidal ideation or any social stressors at home. Time/Duration: Prior to Arrival Symptom Onset: Gradual Symptom Course: Unchanged Quality: Aching Activities at Onset: Light Context: Home Past Medical History - Provider Review Nursing Documentation Reviewed: Yes - Infectious Disease Hx of Infectious Diseases: None - Tetanus Immunization Tetanus Immunization: Unknown - Cardiac Hx Cardiac Disorders: Yes Hx Hypertension: Yes - Pulmonary Hx Respiratory Disorders: No Hx Tuberculosis: No - Neurological Hx Neurological Disorder: No HX Cerebrovascular Accident: No Hx Seizures: No - HEENT Hx HEENT Disorder: No - Renal Hx Renal Disorder: No - Endocrine/Metabolic Hx Endocrine Disorders: Yes Hx Diabetes Mellitus Type 2: Yes - Hematological/Oncological Hx Blood Disorders: No Hx Cancer: No - Integumentary Hx Dermatological Disorder: No - Musculoskeletal/Rheumatological Hx Musculoskeletal Disorders: No Hx Falls: No - Gastrointestinal Hx Gastrointestinal Disorders: Yes Hx Colostomy: No Hx Crohn's Disease: No Hx Diverticulitis: No Hx Gall Bladder Disease: Yes Hx Gastroesophageal Reflux: Yes Hx Gastrointestinal Ulcer: No Hx Ileostomy: No Hx Liver Failure: No Hx Pancreatitis: No HX Swallowing Problems: No Other/Comment: GASTRITIS - Genitourinary/Gynecological Hx Genitourinary Disorders: Yes Hx Sexually Transmitted Diseases: No Hx Urinary Tract Infection: Yes - Psychiatric Hx Psychophysiologic Disorder: Yes Hx Anxiety: Yes Hx Bipolar Disorder: Yes Hx Depression: Yes Hx Substance Use: No - Surgical History Hx Cholecystectomy: Yes (2006) - Anesthesia Hx Anesthesia: Yes Hx Anesthesia Reactions: No Hx Malignant Hyperthermia: No - Suicidal Assessment Feels Threatened In Home Enviroment: No Family/Social History - Physician Review Nursing Documentation Reviewed: Yes Family/Social History: No Known Family HX Smoking Status: Never Smoked Hx Alcohol Use: No Hx Substance Use: No Hx Substance Use Treatment: No Allergies/Home Meds Allergies/Adverse Reactions: Allergies No Known Allergies Allergy (Verified 12/14/16 18:37) Home Medications: Home Meds Medication Instructions Recorded Confirmed QUEtiapine [SEROquel] 300 mg PO HS 05/04/15 12/14/16 Enalapril Maleate [Vasotec] 10 mg PO DAILY 08/25/16 12/14/16 Review of Systems - Physician Review All systems were reviewed & negative as marked: Yes - Review of Systems Constitutional: absent: Fevers Respiratory: absent: SOB, Cough Cardiovascular: Chest Pain, Palpitations Gastrointestinal: absent: Abdominal Pain, Diarrhea, Nausea, Vomiting Musculoskeletal: absent: Back Pain, Neck Pain Neurological: Dizziness. absent: Headache Physical Exam Vital Signs Reviewed: Yes Vital Signs Pulse Resp BP Pulse Ox 12/06/17 23:20 73 18 144/93 H 97 12/06/17 20:25 84 18 153/94 H 100 Temperature: Afebrile Blood Pressure: Normal Pulse: Regular Respiratory Rate: Normal Appearance: Positive for: Well-Appearing, Non-Toxic, Comfortable Pain Distress: None Mental Status: Positive for: Alert and Oriented X 3 - Systems Exam Head: Present: Atraumatic, Normocephalic Pupils: Present: PERRL Extroacular Muscles: Present: EOMI Conjunctiva: Present: Normal Mouth: Present: Moist Mucous Membranes Neck: Present: Normal Range of Motion Respiratory/Chest: Present: Clear to Auscultation, Good Air Exchange. No: Respiratory Distress, Accessory Muscle Use Cardiovascular: Present: Regular Rate and Rhythm, Normal S1, S2. No: Murmurs Abdomen: No: Tenderness, Distention, Peritoneal Signs Back: Present: Normal Inspection Upper Extremity: Present: Normal Inspection. No: Cyanosis, Edema Lower Extremity: Present: Normal Inspection. No: Edema Neurological: Present: GCS=15, CN II-XII Intact, Speech Normal Skin: Present: Warm, Dry, Normal Color. No: Rashes Psychiatric: Present: Alert, Oriented x 3, Normal Insight, Normal Concentration Medical Decision Making ED Course and Treatment: 12/06/17 20:40 Impression: 47 year old female presents to the Emergency department complaining of chest pain associated with dizziness. Plan: -- EKG -- Urinalysis -- Reassess and disposition Prior Visits: Notes and results from previous visits were reviewed. Progress Notes: 12/06/17 23:27 Upon reassessment, patient informs improved symptoms with no new complaints. patients symptoms more morre anxiety, neg stress test 9 months ago Patient will be discharged home with follow up instructions to PMD. 12/07/17 00:54 - Lab Interpretations Lab Results: 12/06/17 21:05 12/06/17 21:05 Lab Results 12/06/17 22:14: Urine Color Yellow, Urine Appearance Sl cloudy, Urine pH 6.0, Ur Specific [place] 1.025, Urine Protein Trace H, Urine Glucose (UA) Negative, Urine Ketones Trace H, Urine Blood Large H, Urine Nitrate Negative, Urine Bilirubin Negative, Urine Urobilinogen 0.2, Ur Leukocyte Esterase Trace H, Urine RBC 25 - 30, Urine WBC 2 - 5, Ur Epithelial Cells 4 - 5, Urine Bacteria Many, Urine Other Uyeast 12/06/17 21:05: Sodium 141, Potassium 3.4 L, Chloride 104, Carbon Dioxide 24, Anion Gap 16, BUN 11, Creatinine 0.6 L, Est GFR ( Amer) > 60, Est GFR ( Non-Af Amer) > 60, Random Glucose 182 H, Calcium 8.9, Magnesium 1.7, Total Bilirubin 0.4, AST 42 H, ALT 55, Alkaline Phosphatase 128 H, Lactate Dehydrogenase 379, Total Creatine Kinase 42, Troponin I < 0.01, Total Protein 7.0, Albumin 4.0, Globulin 3.0, Albumin/Globulin Ratio 1.3 12/06/17 21:05: PT 11.4, INR 1.00, APTT 30.4, D-Dimer, Quantitative Cancelled 12/06/17 21:05: WBC 7.2, RBC 4.56, Hgb 12.4, Hct 37.1, MCV 81.4, MCH 27.2, MCHC 33.4, RDW 13.3, Plt Count 230, MPV 11.3 H, Gran % 64.3, Lymph % (Auto) 28.2, [place] % (Auto) 4.7, Eos % (Auto) 2.5, Baso % (Auto) 0.3, Gran # 4.64, Lymph # ( Auto) 2.0, [place] # (Auto) 0.3, Eos # (Auto) 0.2, Baso # (Auto) 0.02 - Scribe Statement The provider has reviewed the documentation as recorded by the Scribe Ita Davila. All medical record entries made by the Scribe were at my direction and personally dictated by me. I have reviewed the chart and agree that the record accurately reflects my personal performance of the history, physical exam, medical decision making, and the department course for this patient. I have also personally directed, reviewed, and agree with the discharge instructions and disposition. Disposition/Present on Arrival - Present on Arrival Any Indicators Present on Arrival: No History of DVT/PE: No History of Uncontrolled Diabetes: No Urinary Catheter: No History of Decub. Ulcer: No History Surgical Site Infection Following: None - Disposition Have Diagnosis and Disposition been Completed?: Yes Diagnosis: Chest pain Disposition: HOME/ ROUTINE Disposition Time: 23:00 Patient Problems: Current Active Problems Problem Status Onset Chest pain Acute Condition: GOOD Discharge Instructions (ExitCare): Chest Pain (ED) Additional Instructions: follow up with dr temple Referrals: Jacob Temple MD [Primary Care Provider] - Follow up with primary Forms: [employer] (Guamanian)
[2017-12-06 22:31] LABS: URINE BILIRUBIN NEGATIVE (NEGATIVE); URINE BLOOD LARGE (NEGATIVE); URINE GLUCOSE (UA) NEGATIVE (NEGATIVE); URINE LEUKOCYTE ESTERASE TRACE Leu/uL (NEGATIVE); URINE PROTEIN TRACE mg/dL (<30 mg/dL); URINE UROBILINOGEN 0.2 E.U./dL (<1 E.U./dL)
[2017-12-06 22:37] LABS: URINE APPEARANCE SL CLOUDY (CLEAR); URINE COLOR YELLOW (YELLOW)
[2017-12-06 22:41] LABS: URINE RBC 25 - 30 /hpf (0-2)
[2017-12-06 22:42] LABS: URINE BACTERIA MANY (NEG)
[2017-12-06 23:21] VITALS: BP 144/93; PULSE 73; O2SAT 97
--- NOTE | 2017-12-07 11:09 | CARD ---
APPROVED REPORT Date of service: 12/06/2017 EKG Measurement Heart [id number] <Conclusion> Normal sinus rhythm NSSTW changes
== END 2017-12-07 02:42 | disposition home or self-care (01) ==
LOC: ED 20:10
DX: R07.9 Chest pain, unspecified (principal); E11.9 Type 2 diabetes mellitus without complications; I10 Essential (primary) hypertension